=== PATIENT | male | born 1965 | race Caucasian/White ===

== ENCOUNTER 2017-02-01 15:54 | Emergency (ER) | payer MEDICAID ==
[~2017-02-01] VITALS: Ht 180.3 cm; Wt 105.0 kg
[~2017-02-01 15:54] MED LIST: BUPR150XL PO; LISI10 PO; QUET100 PO; QUET300 PO; WELL150T PO
[2017-02-01 15:56] VITALS: BP 168/104; PULSE 94; RESP 20; TEMP 98.6; O2SAT 96
--- NOTE | 2017-02-01 16:02 | PD ---
Physical Exam Time Seen by Provider: 15:59 Narrative 51yo M requesting medication refill on lisinopril 10mg daily. Last taken couple weeks ago. Says he has SOB occasionally from dust at his work from [employer]. Denies at this time. Denies chest pain, CERVANTES, vomiting. Patient seen in triage. VS reviewed. Awaiting bed placement. Data Data Last Documented VS Vital Signs Date Time Temp Pulse Resp B/P (MAP) Pulse Ox O2 Delivery O2 Flow Rate FiO2 02/01/17 15:56 98.6 94 20 168/104 (125) 96 Room Air MDM Supervised Visit with FARHAD: Jennifer Calloway Feb 01, 2017 16:02
[2017-02-01] MEDS ORDERED: LISI-515 PO (16:33)
--- NOTE | 2017-02-01 16:37 | PD ---
HPI Chief Complaint: Hypertension Time Seen by Provider: 16:26 Travel History International Travel<30 days: No Contact w/Intl Traveler<30days: No Traveled to known affect area: No History of Present Illness HPI 51-year-old male with history of hypertension treated with lisinopril 10 mg daily. Patient states has been out of his meds for approximately 1 week. He has no current primary care physician. No other complaints. He has no known drug allergies. 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.) Joint Replacement: No Pacemaker: No Other Surgery: Yes Social History Alcohol Use: No (QUIT) Tobacco Use: No Allergies-Medications (Allergen,Severity, Reaction): Coded Allergies: No Known Allergies (Verified , 01/06/15) Reported Meds & Prescriptions Reported Meds & Active Scripts Active Lisinopril 20 Mg Tab 20 Mg PO DAILY Quetiapine Fumarate 300 Mg Tab 600 Mg PO HS 7 Days Wellbutrin Sr (Bupropion HCl) 150 Mg Tabcr 150 Mg PO BID 7 Days Quetiapine Fumarate 100 Mg Tab 100 Mg PO DAILY 15 Days Quetiapine Fumarate 300 Mg Tab 600 Mg PO HS 15 Days Prinivil 10 mg (Lisinopril) 10 Mg Tab 10 Mg PO DAILY 0 Days Order for dose adjustment only. Pt tells me he has an adequate supply of this med at home. Wellbutrin Xl (Bupropion HCl) 150 Mg Jayson 150 Mg PO DAILY 15 Days Review of Systems Except as stated in HPI: all other systems reviewed are Neg General / Constitutional: No: Fever Eyes: No: Visual changes HENT: No: Headaches Cardiovascular: No: Chest Pain or Discomfort Respiratory: No: Shortness of Breath Gastrointestinal: No: Abdominal Pain Genitourinary: No: Dysuria Musculoskeletal: No: Pain Skin: No Rash Neurologic: No: Weakness Psychiatric: No: Depression Endocrine: No: Polydipsia Hematologic/Lymphatic: No: Easy Bruising Physical Exam Narrative GENERAL: No acute distress. SKIN: Warm and dry. HEAD: Atraumatic. Normocephalic. EYES: Pupils equal and round. No scleral icterus. No injection or drainage. ENT: No nasal bleeding or discharge. Mucous membranes pink and moist. Pharynx is clear. NECK: Trachea midline. Supple. CARDIOVASCULAR: Regular rate and rhythm. RESPIRATORY: No accessory muscle use. Clear to auscultation. Breath sounds equal bilaterally. MUSCULOSKELETAL: Extremities without clubbing, cyanosis, or edema. No obvious deformities. NEUROLOGICAL: Awake and alert. No obvious cranial nerve deficits. Motor grossly within normal limits. Five out of 5 muscle strength in the arms and legs. Normal speech. PSYCHIATRIC: Appropriate mood and affect; insight and judgment normal. Data Data Last Documented VS Vital Signs Date Time Temp Pulse Resp B/P (MAP) Pulse Ox O2 Delivery O2 Flow Rate FiO2 02/01/17 15:56 98.6 94 20 168/104 (125) 96 Room Air MDM Medical Decision Making Medical Screen Exam Complete: Yes Emergency Medical Condition: Yes Differential Diagnosis Hypertension. Need for medication. Medication refill. Narrative Course Patient is medically stable. Patient is given a prescription for lisinopril 20 mg one half daily #30 no refills. Patient referred to [facility] for further treatment. Diagnosis Primary Impression: Encounter for medication refill Additional Impression: Hypertension Qualified Codes: I10 - Essential (primary) hypertension Referrals: [facility] Patient Instructions: 2 Gram Sodium Diet (GEN), General Instructions Additional Instructions: Patient is given a prescription for lisinopril 20 mg one half daily #30 no refills. Patient referred to [facility] for further treatment. Scripts Lisinopril (Lisinopril) 20 Mg Tab 20 MG PO DAILY, #30 TAB 0 Refills Prov: Bina Mack MD 02/01/17 Disposition: 01 DISCHARGE HOME Condition: Stable Teodoro Moscoso Feb 01, 2017 16:37
== END 2017-02-01 16:58 | disposition home or self-care (01) ==
LOC: NEPK 15:54
DX: Z76.0 Encounter for issue of repeat prescription (principal); I10 Essential (primary) hypertension; J45.909 Unspecified asthma, uncomplicated; F41.9 Anxiety disorder, unspecified; F32.9 Major depressive disorder, single episode, unspecified; Z86.19 Personal history of other infectious and parasitic diseases; R56.9 Unspecified convulsions; Z79.899 Other long term (current) drug therapy
CPT/HCPCS: 99283

== ENCOUNTER 2017-07-03 21:05 | Emergency (ER) | payer MEDICAID ==
[~2017-07-03] VITALS: Ht 190.5 cm; Wt 109.5 kg
[~2017-07-03 21:05] MED LIST changes: -BUPR150XL PO; +LISI-515 PO; -LISI10 PO; -QUET100 PO; -QUET300 PO; -WELL150T PO
[2017-07-03 21:14] VITALS: BP 173/90; PULSE 81; RESP 20; TEMP 98.1; O2SAT 95
[2017-07-03] MEDS ORDERED: LISI-515 PO (22:08)
[2017-07-03] MEDS ORDERED: VENTAER INH (22:08)
--- NOTE | 2017-07-03 22:13 | PD ---
HPI Chief Complaint: Respiratory Symptoms Time Seen by Provider: 21:43 Travel History International Travel<30 days: No Contact w/Intl Traveler<30days: No Traveled to known affect area: No History of Present Illness HPI This patient complains of some congestion and a feeling that he has fluid in his lungs. Duration 2 months. He is a smoker. Denies fever. He is not short of breath or having chest pain. He went to [facility] month ago and had an x-ray that was normal PFS Past Medical History Asthma: Yes Anxiety: Yes Depression: Yes Cancer: No Cardiovascular Problems: Yes Diminished Hearing: No Endocrine: No Genitourinary: No Hepatitis: Yes (HEP C) Hypertension: Yes Immune Disorder: No Musculoskeletal: No Neurologic: No Psychiatric: Yes (BA JAN 2008) Reproductive: No Respiratory: No Integumentary: Yes (HX SHINGLES) Immunizations Current: Yes Seizures: Yes (X 3 DURING WITHDRAWAL) Shingles: Yes Influenza Vaccination: No Past Surgical History Abdominal Surgery: Yes (HERNIA) Genitourinary Surgery: Yes (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.) Joint Replacement: No Pacemaker: No Other Surgery: Yes Social History Alcohol Use: No (QUIT) Tobacco Use: Yes (5 CIGS/DAY) Allergies-Medications (Allergen,Severity, Reaction): Coded Allergies: No Known Allergies (Verified Adverse Reaction, Unknown, 07/03/17) Reported Meds & Prescriptions Reported Meds & Active Scripts Active Ventolin Hfa 18 GM Inh (Albuterol Sulfate) 90 Mcg/Act Aer 1 Puff INH Q4H PRN Lisinopril 20 Mg Tab 20 Mg PO DAILY Review of Systems General / Constitutional: No: Fever HENT: No: Headaches Cardiovascular: No: Chest Pain or Discomfort Respiratory: No: Shortness of Breath Gastrointestinal: No: Nausea Physical Exam Narrative RESPIRATORY: Respiratory effort unlabored, no retractions or use of accessory muscles. Breath sounds are clear and symmetric. CARDIOVASCULAR: Regular rate and rhythm without murmur. Extremities showed no edema or varicosities. GASTROINTESTINAL: Abdomen soft, non-tender, nondistended. Positive bowel sounds. No hepato-splenomegaly, or palpable masses. No guarding. SKIN: Focused skin assessment reveals no rash or ulcers. Skin is warm and dry. Palpation shows no induration or nodules. Data Data Last Documented VS Vital Signs Date Time Temp Pulse Resp B/P (MAP) Pulse Ox O2 Delivery O2 Flow Rate FiO2 07/03/17 21:49 18 97 Room Air 07/03/17 21:14 98.1 81 173/90 (117) MDM Medical Decision Making Medical Screen Exam Complete: Yes Emergency Medical Condition: Yes Medical Record Reviewed: Yes Differential Diagnosis Bronchitis, pleural effusion, pneumonia Narrative Course I have reviewed the patient's electronic medical record. I recommended a chest x-ray but the patient declines I wrote him an albuterol inhaler to use as needed and I refilled his blood pressure medication Recommend primary care follow-up and smoking cessation Diagnosis Primary Impression: Pulmonary congestion Additional Impression: HTN (hypertension) Qualified Codes: I10 - Essential (primary) hypertension Additional Instructions: The patient was advised to follow up with their physician and return if they worsen. Check and record blood pressure daily Avoid decongestants and smoking Med/Other Pt SpecificInfo: Prescription(s) given Scripts Albuterol 18 GM Inh (Ventolin Hfa 18 GM Inh) 90 Mcg/Act Aer 1 PUFF INH Q4H Y for SHORTNESS OF BREATH, #1 INHALER 0 Refills Prov: Andrew Gonzáles MD 07/03/17 Lisinopril (Lisinopril) 20 Mg Tab 20 MG PO DAILY, #30 TAB 0 Refills Prov: Andrew Gonzáles MD 07/03/17 Disposition: 01 DISCHARGE HOME Condition: Stable Andrew Gonzáles MD Jul 03, 2017 22:13
[2017-07-03 22:20] VITALS: BP 155/86
== END 2017-07-03 22:25 | disposition home or self-care (01) ==
LOC: PHED 21:05
DX: R09.89 Other specified symptoms and signs involving the circulatory and respiratory systems (principal); I10 Essential (primary) hypertension; J45.909 Unspecified asthma, uncomplicated; B19.20 Unspecified viral hepatitis C without hepatic coma; F41.9 Anxiety disorder, unspecified; F32.9 Major depressive disorder, single episode, unspecified; F17.290 Nicotine dependence, other tobacco product, uncomplicated
CPT/HCPCS: 99283

== ENCOUNTER 2017-10-23 19:26 | Emergency (ER) | payer SELFPAY ==
[~2017-10-23] VITALS: Ht 190.5 cm; Wt 101.5 kg
[~2017-10-23 19:26] MED LIST changes: +VENTAER INH
[2017-10-23 19:29] VITALS: BP 146/86; PULSE 91; RESP 16; TEMP 98.5; O2SAT 94
[2017-10-23] MEDS ORDERED: METHOCARBAMOL 500 MG TAB PO ONE (19:45)
[2017-10-23] MEDS ORDERED: methylPREDNISolone SOD SUCC 125 MG/2 ML VIAL IM ONE (19:45)
[2017-10-23] MEDS ORDERED: ACETAMINOPHEN/HYDROcodone 325 MG/5 MG TAB PO ONE (19:45)
--- NOTE | 2017-10-23 19:48 | PD ---
HPI Chief Complaint: Back/ Neck Pain or Injury Time Seen by Provider: 19:34 Travel History International Travel<30 days: No Contact w/Intl Traveler<30days: No Traveled to known affect area: No History of Present Illness HPI 51-year-old male presents emergency department for evaluation of low back pain that started 3 days ago after lifting a car. Says that he felt a pull during the incident and the back pain started 5 minutes after lifting the car. Patient points to the lower lumbar right paraspinous muscular area and SI joint. Says that the pain is focused in that area but occasionally radiates to the knee. The pain is sharp and aching. Movement increases pain and rest slightly decreases his pain. Says his pain is moderate to severe. He decided to come in today because his pain has not eased up and his friend is concerned about a possible fracture of the back. Denies fevers, loss of bowel or bladder function, saddle anesthesia, IV drug use, direct trauma. 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.) Joint Replacement: No Pacemaker: No Other Surgery: Yes Social History Alcohol Use: No (QUIT) Tobacco Use: Yes (5 CIGS/DAY) Allergies-Medications (Allergen,Severity, Reaction): Coded Allergies: No Known Allergies (Verified Adverse Reaction, Unknown, 10/23/17) Reported Meds & Prescriptions Reported Meds & Active Scripts Active Lidocaine Patch 12 HR (Lidocaine) 5 % Patch 1 Patch TOPICAL DAILY Remove patch after 12 hours Robaxin (Methocarbamol) 500 Mg Tab 500 Mg PO TID 3 Days Medrol Dosepak (Methylprednisolone) 4 Mg Dspk 4 Mg PO DIRECTED Per Pharmacist direction Lisinopril 20 Mg Tab 20 Mg PO DAILY Review of Systems Except as stated in HPI: all other systems reviewed are Neg Physical Exam Narrative GENERAL: Well-nourished, well-developed patient, moderate distress SKIN: Focused skin assessment warm/dry. No rashes or lesions. HEAD: Normocephalic. Atraumatic. EYES: No scleral icterus. No injection or drainage. PERRLA, EOMI THROAT: No pharyngeal injection, exudates, or tonsillar hypertrophy. Airway is patent. NECK: Supple, trachea midline. No JVD. No meningismus. No tenderness midline cervical spine. CARDIOVASCULAR: Regular rate and rhythm without murmurs, gallops, or rubs. RESPIRATORY: Breath sounds equal bilaterally. No accessory muscle use. No wheezes, rales, or rhonchi MUSCULOSKELETAL: No cyanosis, or edema. BACK: No CVA tenderness. No rash. No point tenderness on palpation of the spine. Tenderness palpation of the right lower lumbar paraspinous area and the right SI joint. No obvious deformities or step-offs. Data Data Last Documented VS Vital Signs Date Time Temp Pulse Resp B/P (MAP) Pulse Ox O2 Delivery O2 Flow Rate FiO2 10/23/17 19:29 98.5 91 16 146/86 (106) 94 Orders Orders Acetamin-Hydrocod 325-5 Mg ([place] 5-325 (10/23/17 19:45) Methocarbamol (Robaxin) (10/23/17 19:45) Methylprednisolone So Succ Inj (Solumedr (10/23/17 19:45) Spine, Lumbar Comp W/Obliq (10/23/17 ) Morphine Inj (Morphine Inj) (10/23/17 21:00) Promethazine (Phenergan) (10/23/17 21:00) Ed Discharge Order (10/23/17 21:04) [facility] Medical Decision Making Medical Screen Exam Complete: Yes Emergency Medical Condition: Yes Differential Diagnosis lumbago, sciatica, muscle spasms, strain, sprain, fracture, cauda equina syndrome, abscess Narrative Course 51-year-old male presents emergency department for evaluation of low back pain that started 3 days ago after lifting a car. Says that he felt a pull during the incident and the back pain started 5 minutes after lifting the car. Patient points to the lower lumbar right paraspinous muscular area and SI joint. Says that the pain is focused in that area but occasionally radiates to the knee. The pain is sharp and aching. Movement increases pain and rest slightly decreases his pain. Says his pain is moderate to severe. He decided to come in today because his pain has not eased up and his friend is concerned about a possible fracture of the back. Denies fevers, loss of bowel or bladder function, saddle anesthesia, IV drug use, direct trauma. His friend insists on an x-ray although I did tell tell him that I do not believe that I would see significant findings based off of the mechanism of injury. When patient returned to his bay after the xray, he appeared to be in much better shape regarding his pain although he did not state such. Vital signs are stable. His exam findings demonstrate a well-developed, well-nourished 51-year-old male in moderate distress. It is evident that patient has significant back pain. In particular, his pain is located at the right lower lumbar paraspinous area and sacral iliac joint area. No red flag signs. EFORSCE reviewed. I reviewed the imaging studies with Dr. Huynh. No acute process seen today. Hydrocodone, Solu-Medrol, Robaxin administered to the emergency department today. Pt subsequently given morphine 4mg with phenergan 12.5mg for pain. Patient will be discharged with Medrol Dosepak and Robaxin. Diagnosis Primary Impression: Lumbar strain Qualified Codes: S39.012A - Strain of muscle, fascia and tendon of lower back , initial encounter Referrals: [facility] Primary Care Physician Departure Forms: Tests/Procedures, Work Release Enter return to work date: October 26, 2017 Additional Instructions: Perform light stretches of the lower back and legs, and alternate heat and ice packs. If you develop increased pain, weakness, fever, chills, or bowel or bladder issues, return to the ED for further treatment and evaluation. Follow up with your primary care physician in 2-3 days. Your back pain persist for several days up to 4 weeks. Scripts Lidocaine Patch 12 HR (Lidocaine Patch 12 HR) 5 % Patch 1 PATCH TOPICAL DAILY for Pain Management, #1 BOX 0 Refills Remove patch after 12 hours Prov: Jarvis Huynh MD 10/23/17 Methocarbamol (Robaxin) 500 Mg Tab 500 MG PO TID for Muscle Spasm for 3 Days, TAB 0 Refills Prov: Jarvis Huynh MD 10/23/17 Methylprednisolone Dosepak (Medrol Dosepak) 4 Mg Dspk 4 MG PO DIRECTED, #1 DSPK 0 Refills Per Pharmacist direction Prov: Jarvis Huynh MD 10/23/17 Disposition: 01 DISCHARGE HOME Condition: Stable Korina Orozco October 23, 2017 19:48
[2017-10-23] MEDS ORDERED: ROBA500T PO (20:35)
[2017-10-23] MEDS ORDERED: MEDR4PAK PO (20:35)
--- NOTE | 2017-10-23 20:59 | RADRPT ---
EXAM DATE: 10/23/2017 8:44 PM EDT AGE/SEX: 51 years / Male INDICATIONS: Lower back pain for 3 days. Patient stated he was helping lift a car, pain since. CLINICAL DATA: This is the patient's initial encounter. Patient reports that signs and symptoms have been present for 3 days and indicates a pain score of 10/10. MEDICAL/SURGICAL HISTORY: . Hypertension. Asthma. Hep C. . Hernia repair. Left nephrectomy. Hy drocelectomy. ORIF right tib/fib. COMPARISON: No prior [facility] exams available for comparison. FINDINGS: The vertebral bodies are in normal alignment without evidence of compression deformity . Minimal spur ring is seen. Bone density is normal for age. Soft tissues are grossly intact. CONCLUSION: No acute abnormality is seen. Electronically signed by: Reinaldo Montaño MD 10/23/2017 8:57 PM EDT
[2017-10-23] MEDS ORDERED: MORPHINE SULFATE 4 MG/ML INJ IM ONE (21:00)
[2017-10-23] MEDS ORDERED: PROMETHAZINE HCL 25 MG TAB PO ONE (21:00)
[2017-10-23] MEDS ORDERED: LIDO1PAD52 TOPICAL (21:03)
== END 2017-10-23 21:31 | disposition home or self-care (01) ==
LOC: PHEFT 19:26
DX: S39.012A Strain of muscle, fascia and tendon of lower back, initial encounter (principal); X50.0XXA Overexertion from strenuous movement or load, initial encounter
CPT/HCPCS: 72110; 96372; 99283; J2270; J2930; Q0169

== ENCOUNTER 2017-11-01 05:32 | Emergency (ER) | payer MEDICAID ==
[~2017-11-01 05:32] MED LIST changes: +LIDO1PAD52 TOPICAL; +MEDR4PAK PO; +ROBA500T PO; -VENTAER INH
[2017-11-01 05:39] VITALS: BP 159/103; PULSE 79; RESP 18; TEMP 98.3; O2SAT 95
[2017-11-01 05:48] VITALS: O2SAT 97
[2017-11-01] MEDS ORDERED: MORPHINE SULFATE 4 MG/ML INJ IV ONE (06:00)
[2017-11-01] MEDS ORDERED: LORazepam 2 MG/ML VIAL IV PUSH SCH (06:00)
[2017-11-01] MEDS ORDERED: DEXAMETHASONE SOD PHOS 20 MG/5 ML VIAL IV ONE (06:00)
--- NOTE | 2017-11-01 06:21 | PD ---
HPI . Back pain Chief Complaint: Back/ Neck Pain or Injury Time Seen by Provider: 05:44 Travel History International Travel<30 days: No Contact w/Intl Traveler<30days: No Traveled to known affect area: No History of Present Illness HPI Patient presents with chief complaint of right low back pain. Onset was on approximately 10/20 after lifting a car. The patient reports that his pain has been getting progressively worse since that time. It is currently rated 10/10. It is associated with a burning sensation in the right knee. The burning sensation is intermittent. He reports no exacerbating or relieving factors. Specifically, no increased pain with movement or certain positions. He denies any history of IV drug abuse. He denies any fever. He denies any bowel or bladder incontinence. He denies any saddle anesthesia. The patient was seen here on 10/23 for same. He rated his pain at 10/10 at that time as well. He had plain films of his back which were negative for fracture or malalignment. He was treated in the emergency department with [place], Robaxin and Solu-Medrol followed by morphine and Phenergan. He was subsequently discharged with prescriptions for a lidocaine patch, a Medrol Dosepak and Robaxin. He states that he has only used a lidocaine patch once because it did not help. He has completed the Medrol Dosepak. He reports some relief of his symptoms with the Medrol Dosepak. It was completed about 2 days ago. He states that he does not take nonsteroidal anti-inflammatory agents because he only has 1 functioning kidney. He states that he has not taken Tylenol because it does not help him. PFSH Past Medical History Asthma: Yes Anxiety: Yes Depression: Yes Cancer: No Cardiovascular Problems: Yes Diminished Hearing: No Endocrine: No Gastrointestinal Disorders: No Genitourinary: No Hepatitis: Yes (HEP C) Hypertension: Yes Immune Disorder: No Musculoskeletal: No Neurologic: No Psychiatric: Yes (BA JAN 2008) Reproductive: No Respiratory: No Integumentary: Yes (HX SHINGLES) Immunizations Current: Yes Seizures: Yes (X 3 DURING WITHDRAWAL) Shingles: Yes Tetanus Vaccination: < 5 Years Influenza Vaccination: Yes Past Surgical History Abdominal Surgery: Yes (HERNIA) Genitourinary Surgery: Yes (LEFT KIDNEY REMOVED AT AGE 12, hydrocelectomy) Joint Replacement: No Pacemaker: No Other Surgery: Yes Social History Alcohol Use: Yes Tobacco Use: Yes (5 CIGS/DAY) Substance Use: Yes (HX of substance abuse) Allergies-Medications (Allergen,Severity, Reaction): Coded Allergies: No Known Allergies (Verified Adverse Reaction, Unknown, 11/01/17) Reported Meds & Prescriptions Reported Meds & Active Scripts Active Lisinopril 20 Mg Tab 20 Mg PO DAILY Review of Systems Except as stated in HPI: all other systems reviewed are Neg Physical Exam Narrative GENERAL: Awake and alert. Appears very uncomfortable. SKIN: Warm and dry. Normal color and turgor. HEAD: Normocephalic/atraumatic. EYES: Pupils are equal. Extraocular movements are intact. NECK: Normal range of motion. CARDIOVASCULAR: Regular rate and rhythm. RESPIRATORY: Nonlabored respirations. MUSCULOSKELETAL: Tender in the right SI joint. No tenderness to percussion of the lumbar spine. NEUROLOGICAL: Nonfocal. Normal gait. Moving all 4 extremities equally. PSYCHIATRIC: Appropriate mood and affect. Data Data Last Documented VS Vital Signs Date Time Temp Pulse Resp B/P (MAP) Pulse Ox O2 Delivery O2 Flow Rate FiO2 11/01/17 05:48 97 11/01/17 05:39 98.3 79 18 159/103 (121) Orders Orders Mri L Spine W/O Contrast (11/01/17 05:48) Morphine Inj (Morphine Inj) (11/01/17 06:00) Lorazepam Inj (Ativan Inj) (11/01/17 06:00) ^ Saline Lock (11/01/17 05:48) Dexamethasone Inj (Decadron Inj) (11/01/17 06:00) MDM Medical Decision Making Medical Screen Exam Complete: Yes Emergency Medical Condition: Yes Differential Diagnosis Differential diagnosis includes but is not limited to muscular low back pain, DDD, spinal stenosis, epidural abscess, sciatica, kidney infection or stone. Narrative Course This patient presents with continued and worsening low back pain and an intermittent burning sensation in the right knee since an injury secondary to heavy lifting. The injury occurred on 10/20. An IV has been started and he has been given IV morphine for pain, Ativan for muscle spasm and Decadron for inflammation. MRI is in process. Care is being turned over to the oncoming provider pending the results of the MRI. This patient has a history of previous substance abuse. [facility] has been queried. He has had no recent narcotics filled. Diagnosis Primary Impression: Low back pain Qualified Codes: M54.41 - Lumbago with sciatica, right side Condition: Stable Bina Mack MD November 01, 2017 06:21
[2017-11-01 07:25] VITALS: BP 141/98; PULSE 72; RESP 16; O2SAT 97
--- NOTE | 2017-11-01 08:30 | PD ---
Physical Exam Narrative GENERAL: SKIN: Warm and dry. HEAD: Atraumatic. Normocephalic. EYES: Pupils equal and round. No scleral icterus. No injection or drainage. ENT: No nasal bleeding or discharge. Mucous membranes pink and moist. NECK: Trachea midline. No JVD. CARDIOVASCULAR: Regular rate and rhythm. RESPIRATORY: No accessory muscle use. Clear to auscultation. Breath sounds equal bilaterally. GASTROINTESTINAL: Abdomen soft, non-tender, nondistended. MUSCULOSKELETAL: Extremities without clubbing, cyanosis, or edema. No obvious deformities. NEUROLOGICAL: Awake and alert. No obvious cranial nerve deficits. Motor grossly within normal limits. Five out of 5 muscle strength in the arms and legs. Normal speech. PSYCHIATRIC: Appropriate mood and affect; insight and judgment normal. Data Data Last Documented VS Vital Signs Date Time Temp Pulse Resp B/P (MAP) Pulse Ox O2 Delivery O2 Flow Rate FiO2 11/01/17 10:03 82 16 154/87 (109) 96 Room Air 11/01/17 05:39 98.3 Orders Orders Mri L Spine W/O Contrast (11/01/17 05:48) Morphine Inj (Morphine Inj) (11/01/17 06:00) Lorazepam Inj (Ativan Inj) (11/01/17 06:00) ^ Saline Lock (11/01/17 05:48) Dexamethasone Inj (Decadron Inj) (11/01/17 06:00) Hydromorphone Pf Inj (Dilaudid Pf Inj) (11/01/17 09:30) Basic Metabolic Panel (Bmp) (11/01/17 10:49) Iv Access Insert/Monitor (11/01/17 10:49) Ketorolac Inj (Toradol Inj) (11/01/17 11:00) Hydromorphone Pf Inj (Dilaudid Pf Inj) (11/01/17 11:00) [facility] Medical Record Reviewed: Yes Supervised Visit with FARHAD: No Narrative Course During the previous shift the patient received 4 mg of morphine and 2 mg of Ativan for pain control and despite receiving all this medication the patient refused the initial MRI when the technicians came to the bedside. Now we have to await the electronic engineering technician to be able to return to perform his test, he continues to ask for more pain medication, however I do not feel comfortable continuing to endlessly administer opiates and benzos which essentially is conscious sedation for pain control. Patient was made aware that the next time the electronic engineering technician comes to the bedside he will be given a one-time dose of medication prior to going to the MRI suite. Of note the patient feels low back pain near L4 L3 S1 region, and the patient also describes a burning sensation to the left knee. However, MRI revealed a questionable masslike enlargement of the right exiting nerve root at L3-L4, there is also a mild disc bulge at L3-L4 with mild flattening of the anterior thecal sac and no focal protrusion. There is no spinal cord involvement. Based on these findings I would have expected the patient to have right knee involvement instead of left, however with the findings he will be referred as a mandatory referral to neurosurgery emergency communications officer for further evaluation and explanation. Diagnosis Primary Impression: Low back pain Qualified Codes: M54.41 - Lumbago with sciatica, right side Additional Impression: Radiculopathy Referrals: Cb Aguirre MD FOR FURTHER EVALUATION AND MANAGEMENT OF YOUR CONDITION DISCOVERED BY mri Patient Instructions: General Instructions, Lumbar Radiculopathy (ED) Scripts Oxycodone-Acetaminophen (Percocet) 10-325 mg Tab 1 TAB PO Q6H Y for PAIN for 3 Days, #12 TAB 0 Refills Prov: Ayan Davila MD 11/01/17 Methylprednisolone Dosepak (Medrol Dosepak) 4 Mg Dspk 4 MG PO DIRECTED, #1 DSPK 0 Refills Per Pharmacist direction Prov: Ayan Davila MD 11/01/17 Disposition: 01 DISCHARGE HOME Condition: Stable Ayan Davila MD November 01, 2017 08:30
[2017-11-01] MEDS ORDERED: HYDROmorphone HCL PF 1 MG/ML VIAL IV PUSH ONE (09:15)
[2017-11-01] MEDS ORDERED: HYDROmorphone HCL PF 2 MG/ML VIAL IV PUSH ONE ×2 (09:30→11:00)
[2017-11-01 10:03] VITALS: BP 154/87; PULSE 82; RESP 16; O2SAT 96
--- NOTE | 2017-11-01 10:15 | RADRPT ---
EXAM DATE: 11/01/2017 9:51 AM EDT AGE/SEX: 51 years / Male INDICATIONS: Pain. Persistent low back pain. CLINICAL DATA: This is the patient's initial encounter. Patient reports that signs and symptoms have been present for 2 weeks and indicates a pain score of 10/10. MEDICAL/SURGICAL HISTORY: Hypertension. Hepatitis C. Nephrectomy, left. Hernia repair. ORIF ti evelyne, right. COMPARISON: No prior [facility] exams available for comparison. TECHNIQUE: Multiplanar, multisequence MRI of the lumbar spine was performed without contrast. Patie nt was scanned in a sitting position; neutral, flexion, and extension scans were performed in the sa gittal plane. FINDINGS: Vertebra: Homogeneous signal. Normal alignment. Discs: There is mild disc desiccation. There is mild disc space narrowing at the L3-4 level. Conus: Normal level and configuration. T12-L1: The thecal sac has a normal diameter. No evidence of disc bulge or protrusion. The neural foramina are patent bilaterally. L1-L2: The thecal sac has a normal diameter. No evidence of disc bulge or protrusion. The neural foramina are patent bilaterally. L2-L3: The thecal sac has a normal diameter. No evidence of disc bulge or protrusion. The neural foramina are patent bilaterally. L3-L4: There is a mild annular disc bulge with mild flattening of the anterior thecal sac and no fo laura protrusion. There is mild narrowing the neural foramina. Mild degenerative changes are noted invo lving the facet joints. There is masslike enlargement right exiting nerve root measuring up to approx imately 6 mm in diameter. This is the seen on axial images numbers 3 2 sequence 7. L4-L5: The thecal sac has a normal diameter. No evidence of disc bulge or protrusion. The neural foramina are patent bilaterally. Mild degenerative change involving set joints. L5-S1: The thecal sac has a normal diameter. No evidence of disc bulge or protrusion. The neural foramina are patent bilaterally. There are mild degenerative changes involving the facet joints. CONCLUSION: 1. Masslike enlargement of the right exiting nerve root at the L3-4 level. A repeat MRI with contras t at this level is recommended to exclude a true mass. 2. Mild disc bulge at L3-4 with mild flattening the anterior thecal sac and no focal protrusion. Electronically signed by: Darren Saucedo MD 11/01/2017 10:14 AM EDT
[2017-11-01] MEDS ORDERED: KETOROLAC TROMETHAMINE 30 MG/ML (IVP) VIAL IV PUSH ONE (11:00)
[2017-11-01] MEDS ORDERED: PERC10TA27 PO (11:06)
[2017-11-01] MEDS ORDERED: MEDR4PAK PO (11:06)
== END 2017-11-01 12:25 | disposition home or self-care (01) ==
LOC: PHED 05:32
DX: M54.41 Lumbago with sciatica, right side (principal); B19.20 Unspecified viral hepatitis C without hepatic coma; F32.9 Major depressive disorder, single episode, unspecified; F41.9 Anxiety disorder, unspecified; I10 Essential (primary) hypertension; J45.909 Unspecified asthma, uncomplicated; F17.210 Nicotine dependence, cigarettes, uncomplicated
CPT/HCPCS: 72148; 96374; 96375; 96376; 99284; J1100; J1170; J1885; J2060; J2270

== ENCOUNTER 2017-11-03 23:25 | Emergency (ER) | payer MEDICAID ==
[~2017-11-03] VITALS: Ht 190.5 cm; Wt 103.3 kg
[~2017-11-03 23:25] MED LIST changes: -LIDO1PAD52 TOPICAL; +PERC10TA27 PO; -ROBA500T PO
[2017-11-03 23:27] VITALS: BP 150/87; PULSE 83; RESP 20; TEMP 98.6; O2SAT 95
--- NOTE | 2017-11-04 00:13 | PD ---
HPI Chief Complaint: Back/ Neck Pain or Injury Time Seen by Provider: 23:58 Travel History International Travel<30 days: No Contact w/Intl Traveler<30days: No Traveled to known affect area: No History of Present Illness HPI The patient is a 51-year-old male that has chronic back pain. This is his third visit in about 2 weeks for this pain. He was seen by Dr. Davila on the of last month and an MRI showed masslike enlargement of the right exiting nerve root at L3-4. Repeat MRI was recommended to exclude a true mass. There was a mild disc bulge at L3-4 with mild flattening of the anterior thecal sac no focal protrusion. The patient does have pain in the back radiating down to above his right knee. He denies any focal neurologic change, any focal weakness or sensory loss. His insurance is Medicaid share of cost. He was prescribed Percocet 10/325 as well as a Medrol Dosepak. On the of last month. He was referred to Dr. Aguirre, neurosurgery. He does have a past history of marijuana and alcohol abuse. PFSH Past Medical History Asthma: Yes Anxiety: Yes Depression: Yes Cancer: No Cardiovascular Problems: Yes Diminished Hearing: No Endocrine: No Gastrointestinal Disorders: No Genitourinary: No Hepatitis: Yes (HEP C) Hypertension: Yes Immune Disorder: No Musculoskeletal: No Neurologic: No Psychiatric: Yes (BA JAN 2008) Reproductive: No Respiratory: No Integumentary: Yes (HX SHINGLES) Immunizations Current: Yes Seizures: Yes (X 3 DURING WITHDRAWAL) Shingles: Yes Past Surgical History Abdominal Surgery: Yes (HERNIA) Genitourinary Surgery: Yes (LEFT KIDNEY REMOVED AT AGE 12, hydrocelectomy) Joint Replacement: No Pacemaker: No Other Surgery: Yes Social History Alcohol Use: Yes (STATED 11/03/17: "FRIDAYS, 4-PACK FRIDAYS!") Tobacco Use: Yes (5 CIGS/DAY) Substance Use: No (HX of substance abuse, CURRENTLY DENIES: 11/03/17) Allergies-Medications (Allergen,Severity, Reaction): Coded Allergies: No Known Allergies (Verified Adverse Reaction, Unknown, 11/03/17) Reported Meds & Prescriptions Reported Meds & Active Scripts Active Ultram (Tramadol HCl) 50 Mg Tab 50 Mg PO Q4H PRN Percocet (Oxycodone-Acetaminophen) 10-325 mg Tab 1 Tab PO Q6H PRN 3 Days Medrol Dosepak (Methylprednisolone) 4 Mg Dspk 4 Mg PO DIRECTED Per Pharmacist direction Lisinopril 20 Mg Tab 20 Mg PO DAILY Review of Systems Except as stated in HPI: all other systems reviewed are Neg Physical Exam Narrative GENERAL: The patient is alert, oriented 3 in moderate apparent distress with his back pain. His vital signs show blood pressure 150/87 but are otherwise normal. SKIN: Focused skin assessment warm/dry. No skin rash is seen. HEAD: Atraumatic. Normocephalic. EYES: Pupils equal and round. No scleral icterus. No injection or drainage. ENT: No nasal bleeding or discharge. Mucous membranes pink and moist. NECK: Trachea midline. No JVD. CARDIOVASCULAR: Regular rate and rhythm. No murmur appreciated. RESPIRATORY: No accessory muscle use. Clear to auscultation. Breath sounds equal bilaterally. GASTROINTESTINAL: Abdomen soft, non-tender, nondistended. Hepatic and splenic margins not palpable. MUSCULOSKELETAL: No obvious deformities. No clubbing. No cyanosis. No edema. Straight leg raising is normal NEUROLOGICAL: Awake and alert. No obvious cranial nerve deficits. Motor grossly within normal limits. Normal speech. PSYCHIATRIC: Appropriate mood and affect; insight and judgment normal. Data Data Last Documented VS Vital Signs Date Time Temp Pulse Resp B/P (MAP) Pulse Ox O2 Delivery O2 Flow Rate FiO2 11/03/17 23:27 98.6 83 20 150/87 (108) 95 Orders Orders Mandatory Outpatient Referral (11/04/17 00:23) [facility] Medical Decision Making Medical Screen Exam Complete: Yes Emergency Medical Condition: Yes Medical Record Reviewed: Yes Differential Diagnosis Low back pain, drug-seeking behavior, herniated nucleus pulposus Narrative Course The patient has low back pain with a swollen nerve root on MRI. He will be given a mandatory referral. He also was prescribed Ultram. Diagnosis Primary Impression: Back pain Additional Instructions: Do not drink alcohol or drive on the Ultram. Do not combine it with other pain medications. Follow-up with neurosurgery about the swollen nerve root seen on MRI. Scripts Tramadol (Ultram) 50 Mg Tab 50 MG PO Q4H Y for PAIN, #20 TAB 0 Refills Prov: Hiren Cuello MD 11/04/17 Disposition: 01 DISCHARGE HOME Condition: Stable Hiren Cuello. MD Nov 04, 2017 00:13
[2017-11-04] MEDS ORDERED: TRAM50 PO (00:27)
== END 2017-11-04 00:41 | disposition home or self-care (01) ==
LOC: PHED 23:25
DX: M54.9 Dorsalgia, unspecified (principal); G89.29 Other chronic pain; F32.9 Major depressive disorder, single episode, unspecified; F41.9 Anxiety disorder, unspecified; I10 Essential (primary) hypertension; J45.909 Unspecified asthma, uncomplicated; B19.20 Unspecified viral hepatitis C without hepatic coma; F17.210 Nicotine dependence, cigarettes, uncomplicated
CPT/HCPCS: 99282

== ENCOUNTER 2017-11-21 10:54 | Emergency (ER) | payer MEDICAID, OTHER ==
[~2017-11-21] VITALS: Ht 190.5 cm; Wt 100.0 kg
[~2017-11-21 10:54] MED LIST changes: +TRAM50 PO
[2017-11-21 11:00] VITALS: BP 152/89; PULSE 71; RESP 16; TEMP 98.2; O2SAT 96
== END 2017-11-21 11:32 | disposition left against medical advice (07) ==
LOC: PHEFT 10:54
DX: Z03.89 Encounter for observation for other suspected diseases and conditions ruled out (principal)
CPT/HCPCS: 99281